=== PATIENT | male | born 1955 | race Asian ===

== ENCOUNTER 2016-10-11 16:04 | Emergency (ER) | payer OTHER ==
[~2016-10-11] VITALS: Ht 167.6 cm; Wt 77.2 kg
[2016-10-11] MEDS ORDERED: FELO5ER PO (16:09)
[2016-10-11] MEDS ORDERED: LOSA25TA21 PO (16:09)
[2016-10-11] MEDS ORDERED: METO-323 PO (16:09)
[2016-10-11] MEDS ORDERED: HYDROCODONE/ACETAMINOPHEN 5-325 MG TABLET PO ONE (17:45)
[2016-10-11] MEDS ORDERED: DOXYCYCLINE 100 MG CAPSULE PO ONE (17:45)
[2016-10-11 18:17] VITALS: BP 158/91
== END 2016-10-11 18:20 | disposition home or self-care (01) ==
LOC: EMS 16:11
DX: N45.1 Epididymitis (principal); N45.2 Orchitis; N43.3 Hydrocele, unspecified; I10 Essential (primary) hypertension
CPT/HCPCS: 76870; 99284